=== PATIENT | male | born 1995 | race Caucasian/White ===

== ENCOUNTER 2017-11-22 19:16 | Emergency (ER) | payer BC ==
[~2017-11-22] VITALS: Ht 182.9 cm; Wt 77.1 kg
[2017-11-22 19:40] VITALS: BP_SYST 150
[2017-11-22 21:17] VITALS: BP_SYST 142
== END 2017-11-22 21:17 | disposition home or self-care (01) ==
LOC: SED 19:16
DX: S16.1XXA Strain of muscle, fascia and tendon at neck level, initial encounter (principal); V89.2XXA Person injured in unspecified motor-vehicle accident, traffic, initial encounter; Y93.89 Activity, other specified; Y92.410 Unspecified street and highway as the place of occurrence of the external cause; Y99.8 Other external cause status
CPT/HCPCS: 70450-TC; 72072-TC; 72110; 72125-TC; 99284